=== PATIENT | female | born 1970 | race Caucasian/White ===

== ENCOUNTER 2020-11-19 05:34 | Outpatient (RCR) | payer BC ==
[~2020-11-19] VITALS: Ht 172.7 cm; Wt 72.6 kg
[2020-11-19] MEDS ORDERED: ATOR20TA66 PO (14:49)
[2020-11-19] MEDS ORDERED: CETI10CA PO (14:49)
[2020-11-19] MEDS ORDERED: TRIA10.8 NS (14:49)
[2020-11-19] MEDS ORDERED: LISI10TA25 PO (14:49)
== END 2020-11-19 15:18 | disposition home or self-care (01) ==
LOC: PREOP 05:34
PROVIDERS: ATTEND Internal Medicine
DX: Z01.818 Encounter for other preprocedural examination (principal)

== ENCOUNTER → 2020-11-27 | Day surgery (SDC) | payer BC ==
--- NOTE | 2020-11-17 08:25 | HISTORY AND PHYSICAL ---
DATE OF SERVICE: COLONOSCOPY HISTORY AND PHYSICAL HISTORY OF PRESENT ILLNESS: The patient is a 50-year-old white female referred for her first screening colonoscopy. She is deemed to be of average risk as she is not aware of any family history for colon cancer. She reports occasional small volume bright red blood per rectum and she has a past history of hemorrhoids requiring banding in 1996. She denies abdominal pain, change in bowel habit or change in weight. PAST MEDICAL HISTORY: Significant for hypertension, hyperlipidemia, seasonal allergies, for which she has been on immunotherapy in the past as well as obstructive sleep apnea diagnosed in 2018, on CPAP. MEDICATIONS ON ADMISSION: Atorvastatin 20 mg daily, lisinopril 10 mg daily, Zyrtec 10 mg daily and Nasacort AQ daily. PAST SURGICAL HISTORY: She had tubal ligation in 1994, hemorrhoid banding in 1996, tonsillectomy in 1974, LASIK eye surgery 2004 and nasal turbinate reduction in 2004. FAMILY HISTORY: Both parents living in their 70s. Mother had bladder cancer, hypertension and high cholesterol. Father has hypertension, high cholesterol with no vascular disease. Has one maternal grandmother diagnosed with post-menopausal breast cancer and Alzheimer's disease. One maternal grandfather with Alzheimer's disease and has one paternal grandmother with lung cancer who smoked and a paternal grandfather with dementia and coronary artery disease. SOCIAL HISTORY: She has no past smoking history and rare alcohol. , with adult children, 2. PHYSICAL EXAMINATION: GENERAL: Reveals a white female, who appears to be in no acute distress. HEENT: Unremarkable. VITAL SIGNS: Blood pressure 126/80, weight 165 pounds. CHEST: Clear to auscultation. CARDIOVASCULAR: Reveals a regular rate and rhythm without murmur, S3 or S4. ABDOMEN: Soft, supple without mass, organomegaly or tenderness. Bowel sounds positive. No bruits noted. EXTREMITIES: Reveal no cyanosis, clubbing or edema. ASSESSMENT AND PLAN: The patient is set up for her first screening colonoscopy. Prep instructions with the Suprep kit were given and questions were answered. I thank you for the referral of this pleasant lady. Her primary care provider is Coral Savage [facility], [facility]. Job ID: [id number] DocumentID: [id number] Dictated Date: 11/13/2020 10:36:22 Broom Handle Dipper Date: 11/13/2020 11:00:09 Dictated By: DONAVAN CHAMBERS MD
[~2020-11-27] VITALS: Ht 172.7 cm; Wt 72.6 kg
[~2020-11-27] MED LIST: ATOR20TA66 PO; CETI10CA PO; LACTATED RINGERS 1,000 ML IV ONE; LACTATED RINGERS 1,000 ML IV STA; LIDOCAINE JELLY 2% 6 ML SYRINGE MM PRN; LISI10TA25 PO; MIDAZOLAM 2 MG/2 ML (VERSED) VIAL ONE; PROPOFOL INJECTION 50 ML IV ONE; TRIA10.8 NS
[2020-11-27 07:37] VITALS: BP 137/100
[2020-11-27 08:25] VITALS: BP 113/68
--- NOTE | 2020-11-27 08:29 | Pre-Op Note & Conscious Sedat ---
Pre-Operative Progress Note H&P Reviewed The H&P was reviewed, patient examined and no changes noted. Date H&P Reviewed: Nov 27, 2020 Time H&P Reviewed: 07:30 Conscious Sedation Pre-Proced ASA Score 2 For ASA 3 and 4: Consider anesthesia and medical clearance. Also, for patients with a history of failed moderate sedation consider anesthesia. Airway Lungs Heart ASA score ASA 1: a normal healthy patient ASA 2: a patient with a mild systemic disease (mid diabetes, controlled hypertension, obesity ASA 3: a patient with a severe systemic disease that limits activity (angina, COPD, prior Myocardial infarction) ASA 4: a patient with an incapacitating disease that is a constant threat to life (CHF, renal failure) ASA 5: a moribund patient not expected to survive 24 hrs. (ruptured aneurysm) ASA 6: a declared brain- patient whose organs are being harvested. For emergent operations, add the letter E after the classification Mallampati Classification Grade 2 Sedation Plan Analgesia, Amnesia, Plan communicated to team members, Discussed options with patient/fam, Discussed risks with patient/fam The patient is an appropriate candidate to undergo the planned procedure, sedation, and anesthesia. The patient immediately re-assessed prior to indication. DONAVAN CHAMBERS MD Nov 27, 2020 08:29
[2020-11-27 08:30] VITALS: BP 114/70
[2020-11-27 09:00] VITALS: BP 122/80
--- NOTE | 2020-11-28 00:08 | OPERATIVE REPORT ---
DATE OF SERVICE: COLONOSCOPY SUMMARY INDICATION FOR THE PROCEDURE: Screening colonoscopy. DESCRIPTION OF PROCEDURE: The patient was placed in the left lateral decubitus position. Prior to undergoing colonoscopy, digital rectal evaluation was performed. Anal sphincter tone was normal and the perianal reflexes intact. No abnormalities were noted on digital inspection of anal canal or distal rectal vault. Colonoscope was inserted into the rectum and under direct visualization advanced to cecum. The cecum was identified by identification of ileocecal valve and cecal strap. Photographic documentation was obtained. Careful inspection was made as the colonoscope withdrawn. The patient tolerated the procedure well. Quality of prep was good. FINDINGS: The rectum, sigmoid colon, descending colon, splenic flexure, transverse colon, hepatic flexure, ascending colon and cecum were unremarkable with no evidence for neoplasia or diverticular disease. ASSESSMENT: Normal colonoscopy to the cecum. The patient is not aware of any family history for colon cancer, so would advocate consideration for repeat screening colonoscopy in 10 years. I thank you for the referral of this pleasant lady. Job ID: [id number] DocumentID: [id number] Dictated Date: 11/27/2020 15:58:00 School Age Program Associate Date: 11/28/2020 00:06:49 Dictated By: DONAVAN CHAMBERS MD
== END ==
LOC: ENDO 07:12
PROVIDERS: ATTEND Internal Medicine
DX: Z12.11 Encounter for screening for malignant neoplasm of colon (principal); I10 Essential (primary) hypertension; E78.5 Hyperlipidemia, unspecified; J30.2 Other seasonal allergic rhinitis; G47.33 Obstructive sleep apnea (adult) (pediatric); Z87.19 Personal history of other diseases of the digestive system; Z79.899 Other long term (current) drug therapy; Z98.51 Tubal ligation status; Z98.890 Other specified postprocedural states; Z78.0 Asymptomatic menopausal state; Z80.52 Family history of malignant neoplasm of bladder; Z80.3 Family history of malignant neoplasm of breast; Z80.1 Family history of malignant neoplasm of trachea, bronchus and lung